=== PATIENT | male | born 1990 | race Two or more races ===

== ENCOUNTER 2018-09-17 07:45 | Emergency (ER) | payer BC ==
[~2018-09-17] VITALS: Ht 167.6 cm; Wt 72.8 kg
[2018-09-17 07:48] VITALS: BP 112/69
--- NOTE | 2018-09-17 08:06 | NUR ---
HOSPITALIST MEDICAL DIRECTOR: [facility]
[2018-09-17] MEDS ORDERED: KETOROLAC 30 MG/1 ML IM ONE (08:30)
[2018-09-17] MEDS ORDERED: METHOCARBAMOL 750 MG TABLET PO ONE (08:30)
[2018-09-17] MEDS ORDERED: METHOCARBAMOL 750 MG TABLET ONE (08:35)
[2018-09-17] MEDS ORDERED: KETOROLAC 30 MG/1 ML ONE (08:36)
== END 2018-09-17 09:33 | disposition home or self-care (01) ==
LOC: ED 09:24
DX: S29.012A Strain of muscle and tendon of back wall of thorax, initial encounter (principal); X58.XXXA Exposure to other specified factors, initial encounter; Y93.89 Activity, other specified; Y92.89 Other specified places as the place of occurrence of the external cause; Y99.8 Other external cause status
CPT/HCPCS: 99283